=== PATIENT | male | born 1980 | race Hispanic/Latino ===

== ENCOUNTER 2023-05-06 18:36 | Emergency (ER) | payer SELFPAY ==
[~2023-05-06 18:36] MED LIST: Iopamidol 300 61% 100 ML VIAL FS ONE
[2023-05-06] MEDS ORDERED: Ondansetron PF 4 MG/2 ML Vial ONE (20:12)
[2023-05-06] MEDS ORDERED: Dicyclomine 20 MG/2 ML VIAL ONE (20:13)
[2023-05-06 20:24] LABS: Bilirubin Neg (Negative); Blood, Urine 25 (Negative); Clarity Clear (Clear); Glucose, Urine (Dipstick) Normal (Negative); Ketone, Urine Negative (Negative); Leukocyte Negative (Negative); Nitrite Negative (Negative); Protein, Urine (Dipstick) Negative (Neg-Trace); Urobilinogen Normal mg/dL (Less than 2)
[2023-05-06 20:33] LABS: #Eosinphils 0.2 10x3/uL (0.0-0.5); #Monocytes 0.7 10x3/uL (0.0-1.1); #Neutrophils 3.6 10x3/uL (1.5-8.4); %Basophils 0.6 % (0.0-2.0); %Eosinophils 2.2 % (0.0-6.0); %Lymphocytes 34.4 % (18.0-47.0); %Monocytes 9.9 % (0.0-10.0); %Neutrophils 52.8 % (40.0-75.0); Hematocrit 44.8 % (38.8-50.0); Hemoglobin 15.4 g/dL (13.5-17.5); Mean Corpuscular HGB CONC 34.4 g/dL (32.0-36.0); Mean Corpuscular Hemoglobin 32.4 pg (27.0-33.0); Mean Corpuscular Volume 94.3 fl (81.2-95.1); Mean Platelet Volume 11.1 fl (7.4-10.4); Platelet Count 215 10x3/uL (150-450); RBC Distribution Width 12.2 % (11.5-14.5); Red Blood Cell (RBC) Count 4.75 10x6/uL (4.32-5.72); White Blood Cell (WBC) Count 6.8 10x3/uL (3.5-10.5)
[2023-05-06 20:39] LABS: Bacteria/HPF Rare-Few HPF (None Seen); CAUTI Indications for Culture Pelvic or flank pain; RBC/HPF 0-3 HPF (0-3); Squamous Epithelial 0-3 HPF (0-3); WBC/HPF 0-3 HPF (0-3)
[2023-05-06 20:40] LABS: Urine Culture Reflex No No
[2023-05-06] MEDS ORDERED: Morphine 4 MG/ML VIAL ONE (22:17)
== END 2023-05-06 22:57 | disposition home or self-care (01) ==
LOC: CSHERS 18:36
DX: R10.32 Left lower quadrant pain (principal); F17.210 Nicotine dependence, cigarettes, uncomplicated
CPT/HCPCS: 74177; 81001; 83690; 85025; 96372; 96374; 96375; J2270; J2405; Q9967

== ENCOUNTER 2024-03-03 10:02 | Emergency (ER) | payer SELFPAY ==
[2024-03-03] MEDS ORDERED: Boostrix 0.5 ML (Tdap) VIAL (>/=7 yrs of age) ONE (11:06)
[2024-03-03] MEDS ORDERED: Acetaminophen 500 MG TAB ONE (11:20)
== END 2024-03-03 14:26 | disposition home or self-care (01) ==
LOC: CSHERS 10:02
DX: S06.350A Traumatic hemorrhage of left cerebrum without loss of consciousness, initial encounter (principal); S01.81XA Laceration without foreign body of other part of head, initial encounter; S01.511A Laceration without foreign body of lip, initial encounter; S80.212A Abrasion, left knee, initial encounter; F17.210 Nicotine dependence, cigarettes, uncomplicated; Z23 Encounter for immunization; Z55.6 Problems related to health literacy; Y04.0XXA Assault by unarmed brawl or fight, initial encounter
CPT/HCPCS: 70450; 70486; 72125; 90471; 90715